=== PATIENT | female | born 1995 | race Caucasian/White ===

== ENCOUNTER 2016-10-30 21:13 | Emergency (ER) | payer MEDICAID ==
[~2016-10-30] VITALS: Ht 152.4 cm; Wt 88.0 kg
[2016-10-30 21:14] VITALS: BP 158/103; PULSE 94; RESP 14; TEMP 99.9; O2SAT 98
[2016-10-31 00:25] VITALS: BP 144/75; PULSE 99; RESP 18; O2SAT 97
[2016-10-31] MEDS ORDERED: KETOROLAC TROMETHAMINE 30 MG/ML (IVP) VIAL IVP ONE (00:45)
[2016-10-31 01:08] LABS: AUTOMATED NEUTROPHIL # 7.5 TH/MM3 (1.8-7.7); BASOPHIL % 0.4 % (0.0-2.0); EOSINOPHIL # 0.1 TH/MM3 (0-0.4); EOSINOPHIL % 0.5 % (0.0-4.0); HEMATOCRIT 37.7 % (35.0-46.0); HEMO FLAGS DIFF FINAL; LYMPH % 33.5 % (9.0-44.0); LYMPHOCYTE # 4.1 TH/MM3 (1.0-4.8); MEAN CELL VOLUME 82.8 FL (80.0-100.0); MEAN CORPUSCULAR HEMOGLOBIN 26.5 PG (27.0-34.0); MEAN CORPUSCULAR HGB CONC 32.1 % (32.0-36.0); NEUT % 60.6 % (16.0-70.0); PLATELET COUNT 389 TH/MM3 (150-450); RED BLOOD COUNT 4.56 MIL/MM3 (4.00-5.30); RED CELL DISTRIBUTION WIDTH 16.3 % (11.6-17.2); WHITE BLOOD COUNT 12.3 TH/MM3 (4.0-11.0)
[2016-10-31 01:37] LABS: BLOOD, URINE LARGE (NEG); COMMENT (UR) CULTURE INDICATED; CULTURE IF INDICATED CULTURE INDICATED; GLUCOSE,URINE NEG (NEG); KETONE, URINE NEG (NEG); MUCUS URINE FEW /lpf (OCC); NITRITE,URINE NEG (NEG); PH, URINE 5.5 (5.0-8.5); SQUAMOUS EPITHELIAL CELL URINE 5 /hpf (0-5); URINE COLOR YELLOW (YELLW/STRAW)
[2016-10-31 02:03] LABS: ALT (GPT) 17 U/L (10-53); ANION GAP 9 MEQ/L (5-15); AST (GOT) 8 U/L (15-37); BICARBONATE 22.2 MEQ/L (21.0-32.0); BLOOD UREA NITROGEN 10 MG/DL (7-18); CHLORIDE 110 MEQ/L (98-107); GLOMERULAR FILTRATION RATE 97 ML/MIN (>89); POTASSIUM 3.9 MEQ/L (3.5-5.1); SODIUM (NA) 141 MEQ/L (136-145)
[2016-10-31 02:06] LABS: ALKALINE PHOSPHATASE 49 U/L (45-117); BETA HCG QUANT LESS THAN 1 MIU/ML (0-5); TOTAL BILIRUBIN ADULT 0.2 MG/DL (0.2-1.0)
[2016-10-31] MEDS ORDERED: RANI150C PO (02:06)
--- NOTE | 2016-10-31 02:07 | PD ---
HPI Chief Complaint: Abdominal Pain Time Seen by Provider: 00:36 Travel History International Travel<30 days: No Contact w/Intl Traveler<30days: No Traveled to known affect area: No History of Present Illness HPI To 21-year-old woman who presents to the emergency department claiming of epigastric abdominal pain. She also had some nausea with it. She's also had irregular menstrual bleeding, some vaginal discharge, ongoing for the past 2 weeks or so. Bleeding is heavier over the past several days when epigastric pain got worse. She is a history of gastritis. No history of abdominal surgery , she has a lipoma section in the past. Sexually active with her only. No other complaints. History Past Medical History Medical History: Denies Significant Hx Tetanus Vaccination: Unknown Influenza Vaccination: No LMP: LAST WEEK Social History Alcohol Use: No Tobacco Use: No Allergies-Medications (Allergen,Severity, Reaction): Coded Allergies: Penicillin (Verified Allergy, Mild, HIVES, 10/30/16) Reported Meds & Prescriptions Reported Meds & Active Scripts Active Ranitidine (Ranitidine HCl) 150 Mg Cap 150 Mg PO BID Review of Systems Except as stated in HPI: all other systems reviewed are Neg Physical Exam Narrative GENERAL: Well-appearing 20 year-old woman, no acute distress. SKIN: Warm and dry. HEAD: Atraumatic. Normocephalic. CARDIOVASCULAR: Regular rate and rhythm. No murmur appreciated. RESPIRATORY: No accessory muscle use. Clear to auscultation. Breath sounds equal bilaterally. GASTROINTESTINAL: Abdomen to be soft. No rebound or guarding. Mild epigastric tenderness. No right upper quadrant tenderness. Negative Campos's. MUSCULOSKELETAL: No obvious deformities. No edema. NEUROLOGICAL: Awake and alert. No obvious cranial nerve deficits. Motor grossly within normal limits. Normal speech. PSYCHIATRIC: Appropriate mood and affect; insight and judgment normal. PELVIC: Normal external female genitalia. Some blood in the vaginal vault. Moderate cervical motion tenderness. Left adnexal fullness. Data Data Last Documented VS Vital Signs Date Time Temp Pulse Resp B/P Pulse Ox O2 Delivery O2 Flow Rate FiO2 10/31/16 00:25 99 18 144/75 97 Room Air 10/30/16 21:14 99.9 Orders Beta Hcg (Quant/Titer) (10/31/16 00:36) Complete Blood Count With Diff (10/31/16 00:36) Comprehensive Metabolic Panel (10/31/16 00:36) Gc And Chlamydia Pcr (10/31/16 00:36) Wet Prep Profile (10/31/16 00:36) Urinalysis - C+S If Indicated (10/31/16 00:36) Iv Access Insert/Monitor (10/31/16 00:36) Ed Urine Pregnancytest Poc (10/31/16 00:36) Ed Poc Ultrasound (10/31/16 00:36) Ketorolac Inj (Toradol Inj) (10/31/16 00:45) Lipase (10/31/16 01:12) Thyroid Stimulating Hormone (10/31/16 01:12) Urine Culture (10/31/16 01:00) Labs Laboratory Tests Test 10/31/16 10/31/16 10/31/16 10/31/16 00:40 01:00 01:15 01:20 White Blood Count 12.3 TH/MM3 Red Blood Count 4.56 MIL/MM3 Hemoglobin 12.1 GM/DL Hematocrit 37.7 % Mean Corpuscular Volume 82.8 FL Mean Corpuscular Hemoglobin 26.5 PG Mean Corpuscular Hemoglobin 32.1 % Concent Red Cell Distribution Width 16.3 % Platelet Count 389 TH/MM3 Mean Platelet Volume 9.1 FL Neutrophils (%) (Auto) 60.6 % Lymphocytes (%) (Auto) 33.5 % Monocytes (%) (Auto) 5.0 % Eosinophils (%) (Auto) 0.5 % Basophils (%) (Auto) 0.4 % Neutrophils # (Auto) 7.5 TH/MM3 Lymphocytes # (Auto) 4.1 TH/MM3 Monocytes # (Auto) 0.6 TH/MM3 Eosinophils # (Auto) 0.1 TH/MM3 Basophils # (Auto) 0.0 TH/MM3 CBC Comment DIFF FINAL Differential Comment Lipase 92 U/L Thyroid Stimulating Hormone 2.280 uIU/ML 3rd Gen Urine Color YELLOW Urine Turbidity CLEAR Urine pH 5.5 Urine Specific [place] 1.026 Urine Protein TRACE mg/dL Urine Glucose (UA) NEG mg/dL Urine Ketones NEG mg/dL Urine Occult Blood LARGE Urine Nitrite NEG Urine Bilirubin NEG Urine Urobilinogen LESS THAN 2.0 MG/DL Urine Leukocyte Esterase SMALL Urine RBC /hpf Urine WBC 21 /hpf Urine Squamous Epithelial 5 /hpf Cells Urine Mucus FEW /lpf Microscopic Urinalysis Comment CULTURE INDICATED Clue Cells (Wet Prep) NONE SEEN Vaginal Trichomonas (Wet Prep) NONE SEEN Vaginal Yeast (Wet Prep) NONE SEEN Sodium Level 141 MEQ/L Potassium Level 3.9 MEQ/L Chloride Level 110 MEQ/L Carbon Dioxide Level 22.2 MEQ/L Anion Gap 9 MEQ/L Blood Urea Nitrogen 10 MG/DL Creatinine 0.74 MG/DL Estimat Glomerular Filtration 97 ML/MIN Rate Random Glucose 96 MG/DL Calcium Level 8.9 MG/DL Total Bilirubin 0.2 MG/DL Aspartate Amino Transf 8 U/L (AST/SGOT) Alanine Aminotransferase 17 U/L (ALT/SGPT) Alkaline Phosphatase 49 U/L Total Protein 7.3 GM/DL Albumin 3.7 GM/DL Human Chorionic Gonadotropin, LESS THAN 1 Quant MIU/ML MDM Medical Decision Making Medical Screen Exam Complete: Yes Emergency Medical Condition: Yes Interpretation(s) LABS: CBC remarkable for mild leukocytosis. CMP unremarkable Lipase normal TSH normal HCG negative Wet prep negative Differential Diagnosis Gastritis, cervicitis, PID, ovarian cyst, fibroids, dysmenorrhea, other Narrative Course Medical decision making Point year-old woman with epigastric pain and abnormal uterine bleeding. Low risk for STDs. Don't think she has PID. She's had gastritis before. Certainly her epigastric pain nausea and epigastric tenderness to be consistent with gastritis. Her abnormal menstrual bleeding would have to be unrelated. We 'll check labs, if negative will treat for gastritis. Outpatient follow-up with [facility]. She doesn't seem to have hepatobiliary disease. Ultrasound was limited quality but overall unremarkable. No tenderness over the gallbladder with the ultrasound probe. Procedures Procedure Narrative Point of care ultrasound: Focus transabdominal ultrasounds performed by me at the bedside to evaluate for evidence of cholecystitis. Views were limited. There were no gallstones. There is no ankle bladder wall thickening. No pericholecystic fluid. Diagnosis Primary Impression: Gastritis Qualified Code: K29.00 - Acute gastritis without hemorrhage, unspecified gastritis type Additional Impression: Menorrhagia Qualified Code: N92.0 - Menorrhagia with regular cycle Additional Instructions: Take ranitidine as prescribed. Use Tylenol as needed for abdominal pain. Follow-up with your primary doctor in the next 2-4 days. Return to the emergency department for any new or worsening symptoms. Med/Other Pt SpecificInfo: Prescription(s) given Scripts Ranitidine 150 Mg Brd800 Mg PO BID #60 CAP Prov:Indio Kay MD 10/31/16 Indio Kay MD Oct 31, 2016 02:06
[2016-10-31 02:31] VITALS: BP 117/75
[2016-10-31 03:15] LABS: CHLAMYDIA PCR NOT DETECTED (NOT DETECT); NEISSERIA PCR NOT DETECTED (NOT DETECT)
== END 2016-10-31 02:39 | disposition home or self-care (01) ==
LOC: NEPE 21:13
DX: K29.70 Gastritis, unspecified, without bleeding (principal); N92.0 Excessive and frequent menstruation with regular cycle
CPT/HCPCS: 80053; 81001; 83690; 84443; 84702; 84703; 85025; 87086; 87210; 87491; 87591; 96374; 99284; J1885